=== PATIENT | female | born 1995 | race Caucasian/White ===

== ENCOUNTER → 2019-03-29 | Outpatient (CLI) | payer BC ==
[~2019-03-29] MED LIST: CEPH250SUA PO
== END | disposition home or self-care (01) ==
LOC: LAB SHORT 16:45 → LAB 16:45
DX: N39.0 Urinary tract infection, site not specified (principal)
CPT/HCPCS: 87086

== ENCOUNTER → 2019-05-31 | Outpatient (CLI) | payer BC ==
[2019-06-02 15:07] LABS: HPV 16 Negative (Negative); HPV 18 Negative (Negative); HPV OTHER HR TYPES Negative (Negative)
[2019-06-03 03:07] LABS: CHLAMYDIA TRACHOMATIS, NAA Negative (Negative); NEISSERIA GONORRHOEAE, NAA Negative (Negative)
== END | disposition home or self-care (01) ==
LOC: LAB SHORT 19:47 → LAB 19:47
PROVIDERS: Nurse Practitioner Women's Health
DX: Z11.3 Encounter for screening for infections with a predominantly sexual mode of transmission (principal); Z12.4 Encounter for screening for malignant neoplasm of cervix
CPT/HCPCS: 87491; 87591; 87624; G0123

== ENCOUNTER 2021-03-29 14:15 | Day surgery (SDC) | payer BC ==
[~2021-03-29] VITALS: Ht 152.4 cm; Wt 70.8 kg
[2021-03-29] MEDS ORDERED: PANT40 PO (14:47)
== END 2021-03-29 16:19 | disposition home or self-care (01) ==
LOC: ORSCSDS 14:15
PROVIDERS: Internal Medicine Gastroenterology
PROC: 0DB98ZX Excision of Duodenum, Via Natural or Artificial Opening Endoscopic, Diagnostic (ICD-10-PCS; principal; 2021-03-29 15:30)
PROC: 0DB68ZX Excision of Stomach, Via Natural or Artificial Opening Endoscopic, Diagnostic (ICD-10-PCS; principal; 2021-03-29 15:30)
DX: K21.9 Gastro-esophageal reflux disease without esophagitis (principal); R19.4 Change in bowel habit; K20.90 Esophagitis, unspecified without bleeding; F41.9 Anxiety disorder, unspecified; J45.909 Unspecified asthma, uncomplicated; Z87.891 Personal history of nicotine dependence; E66.9 Obesity, unspecified; Z68.31 Body mass index [BMI] 31.0-31.9, adult; Z79.899 Other long term (current) drug therapy
CPT/HCPCS: 84703; 88305; 88342; J2704; J7120

== ENCOUNTER → 2023-04-24 | Outpatient (CLI) | payer OTHER ==
[~2023-04-24] MED LIST changes: +PANT40 PO
[2023-04-26 04:11] LABS: CHLAMYDIA TRACHOMATIS, NAA Negative (Negative)
== END | disposition home or self-care (01) ==
LOC: LAB SHORT 13:22 → LAB 13:22
PROVIDERS: Advanced Practice Midwife
DX: Z11.3 Encounter for screening for infections with a predominantly sexual mode of transmission (principal)
CPT/HCPCS: 87491; 87591

== ENCOUNTER → 2023-09-28 | Outpatient (CLI) | payer OTHER | END | disposition home or self-care (01) | LOC: LAB SHORT 14:34 → LAB 14:34 | DX: O09.612 Supervision of young primigravida, second trimester (principal) | CPT/HCPCS: 87081; 87150 ==

== ENCOUNTER 2023-10-23 11:40 | Inpatient (IN) | payer OTHER ==
[~2023-10-23] VITALS: Ht 152.4 cm; Wt 95.0 kg
[2023-10-23] VITALS (8 sets, daily range): BP systolic 132–158; BP diastolic 67–80
[2023-10-23] MEDS ORDERED: PRENATAL TABLE1 EAC2 PO (15:09)
[2023-10-23 16:38] LABS: BASOPHILS ABSOLUTE AUTO 0.03 K/mm3 (0.00-0.23); BASOPHILS PERCENT AUTO 0 % (0-2); EOSINOPHILS ABSOLUTE AUTO 0.01 K/mm3 (0.00-0.68); EOSINOPHILS PERCENT AUTO 0 % (0-6); Hematocrit 40.8 % (33.0-51.0); Hemoglobin 13.7 g/dL (11.5-16.0); IMMATURE GRAN ABSOLUTE AUTO 0.07 K/mm3 (0.00-0.10); IMMATURE GRAN PERCENT AUTO 0 % (0-1); LYMPHOCYTES ABSOLUTE AUTO 0.96 K/mm3 (0.84-5.20); LYMPHOCYTES PERCENT AUTO 6 % (21-46); MONOCYTES ABSOLUTE AUTO 0.67 K/mm3 (0.16-1.47); MONOCYTES PERCENT AUTO 4 % (4-13); Mean Corpuscular HGB 29.3 pg (26.0-34.0); Mean Corpuscular HGB Conc 33.6 g/dL (31.5-36.5); Mean Corpuscular Volume 87 fL (80-100); Mean Platelet Volume 10.2 fL (9.1-12.4); NEUTROPHILS ABSOLUTE AUTO 15.68 K/mm3 (1.96-9.15); NEUTROPHILS PERCENT AUTO 90 % (41-73); Platelet Count 198 K/mm3 (150-400); RDW Coefficient Variation 12.8 % (11.7-14.2); RDW Standard Deviation 40.4 fL (35.1-46.3); Red Blood Cell Count 4.68 M/mm3 (3.80-5.20); White Blood Cell Count 17.42 K/mm3 (4.00-11.30)
[2023-10-24 00:34] VITALS: BP 115/66
[2023-10-24 06:24] VITALS: BP 139/80
[2023-10-24 08:27] VITALS: BP 131/82
[2023-10-24 11:49] VITALS: BP 127/76
== END 2023-10-24 16:01 | disposition home or self-care (01) | DRG 807 ==
LOC: OBS 11:40 → BC 11:59
PROVIDERS: ADMIT Advanced Practice Midwife
PROC: 10E0XZZ Delivery of Products of Conception, External Approach (ICD-10-PCS; principal; 2023-10-23)
PROC: 10907ZC Drainage of Amniotic Fluid, Therapeutic from Products of Conception, Via Natural or Artificial Opening (ICD-10-PCS; 2023-10-23)
DX: O99.344 Other mental disorders complicating childbirth (principal); Z37.0 Single live birth; F41.8 Other specified anxiety disorders; M54.9 Dorsalgia, unspecified; G89.29 Other chronic pain; R01.1 Cardiac murmur, unspecified; O99.892 Other specified diseases and conditions complicating childbirth; O77.0 Labor and delivery complicated by meconium in amniotic fluid; Z91.018 Allergy to other foods; Z3A.39 39 weeks gestation of pregnancy; Z90.89 Acquired absence of other organs; Z87.891 Personal history of nicotine dependence; Z88.0 Allergy status to penicillin; Z88.1 Allergy status to other antibiotic agents
CPT/HCPCS: 36415; 85025; 86850; 86900; 86901; A9270

== ENCOUNTER → 2023-12-03 | Outpatient (CLI) | payer OTHER ==
[~2023-12-03] MED LIST changes: +PRENATAL TABLE1 EAC2 PO
== END | disposition home or self-care (01) ==
LOC: LAB 13:03 → LAB SHORT 13:03
PROVIDERS: Advanced Practice Midwife
DX: Z01.419 Encounter for gynecological examination (general) (routine) without abnormal findings (principal)
CPT/HCPCS: G0123

== ENCOUNTER → 2025-04-27 | Outpatient (CLI) | payer OTHER ==
[2025-04-28 09:58] LABS: Source, Urine Clean Catch
== END ==
LOC: LAB 15:30 → LAB SHORT 15:30
PROVIDERS: Advanced Practice Midwife
DX: Z34.81 Encounter for supervision of other normal pregnancy, first trimester (principal)
CPT/HCPCS: 81015; 87086

== ENCOUNTER → 2025-05-12 | Outpatient (CLI) | payer OTHER | LOC: LAB SHORT 11:01 → LAB 11:01 | DX: R82.998 Other abnormal findings in urine (principal) | CPT/HCPCS: 87086 ==